=== PATIENT | female | born 1935 | race Two or more races ===

== ENCOUNTER 2017-05-28 10:00 | Day surgery (SDC) | payer OTHER ==
[~2017-05-28 10:00] MED LIST: NORVASC5 MG PO
[2017-05-28] MEDS ORDERED: TYLENOL-CODEINE1 TA1 PO (10:25)
[2017-05-28] MEDS ORDERED: MACROBID 100 M100 MG PO (10:25)
== END 2017-05-28 17:08 | disposition home or self-care (01) ==
LOC: CIR.AMB 10:00 → SURH 10:00 → EDSTATUS 10:00 → CIR.AMB 17:08
DX: N81.5 Vaginal enterocele (principal); N36.41 Hypermobility of urethra